=== PATIENT | male | born 1985 | race Caucasian/White ===

== ENCOUNTER 2020-12-31 09:13 | Emergency (ER) | payer OTHER ==
[~2020-12-31 09:13] MED LIST: NORCO 5-325 TA1 EACH PO; PERCOCET 5/325 T1 EA PO
[2020-12-31 11:33] LABS: RED BLOOD COUNT 5.03 M/UL (4.20-5.50); WHITE BLOOD COUNT 6.9 K/UL (4.5-11.0)
[2020-12-31 11:52] LABS: BUN/CREATININE RATIO 11 (0-10)
[2020-12-31] MEDS ORDERED: DOXYCYCLINE HY100 MG PO (12:27)
[2020-12-31] MEDS ORDERED: DECADRON6 MG PO (12:27)
[2021-03-26] MEDS ORDERED: PROTONIX40 MG PO (08:16)
[2021-03-26] MEDS ORDERED: PROZAC20 MG PO (08:16)
[2021-03-26] MEDS ORDERED: ZESTRIL20 MG PO (08:17)
== END 2020-12-31 12:50 | disposition home or self-care (01) ==
LOC: ER1 09:13
PROVIDERS: Family Medicine
DX: U07.1 COVID-19 (principal); I10 Essential (primary) hypertension; Z87.891 Personal history of nicotine dependence; Z88.2 Allergy status to sulfonamides
CPT/HCPCS: 36415; 71045; 80053; 82550; 82553; 83874; 84484; 85025; 85610; 85730; 99285

== ENCOUNTER 2021-02-11 07:14 | Emergency (ER) | payer OTHER ==
[~2021-02-11 07:14] MED LIST changes: +DECADRON6 MG PO; +DOXYCYCLINE HY100 MG PO
[2021-02-11 07:48] LABS: HEMOGLOBIN 14.8 gm/dl (14.0-17.5); RED BLOOD COUNT 4.7 M/UL (4.20-5.50)
[2021-02-11 08:11] LABS: BUN/CREATININE RATIO 15 (0-10)
[2021-02-11] MEDS ORDERED: MYLANTA MAXIMU355 ML PO (10:53)
[2021-02-11] MEDS ORDERED: XYLOCAINE 2% JE30 ML PO (10:53)
[2021-03-26] MEDS ORDERED: PROTONIX40 MG PO (08:16)
[2021-03-26] MEDS ORDERED: PROZAC20 MG PO (08:16)
[2021-03-26] MEDS ORDERED: ZESTRIL20 MG PO (08:17)
== END 2021-02-11 11:05 | disposition home or self-care (01) ==
LOC: ER1 07:14
PROVIDERS: Emergency Medicine
DX: K29.70 Gastritis, unspecified, without bleeding (principal); K21.9 Gastro-esophageal reflux disease without esophagitis; I10 Essential (primary) hypertension; F17.290 Nicotine dependence, other tobacco product, uncomplicated; Z88.2 Allergy status to sulfonamides
CPT/HCPCS: 71045; 80053; 82550; 82553; 83874; 84484; 85025; 93005; 99285

== ENCOUNTER → 2021-03-26 | Day surgery (SDC) | payer OTHER ==
[~2021-03-26] MED LIST changes: +MYLANTA MAXIMU355 ML PO; +PROTONIX40 MG PO; +PROZAC20 MG PO; +XYLOCAINE 2% JE30 ML PO; +ZESTRIL20 MG PO
== END | disposition home or self-care (01) ==
LOC: OR 07:23
DX: K29.50 Unspecified chronic gastritis without bleeding (principal); K21.00 Gastro-esophageal reflux disease with esophagitis, without bleeding; I10 Essential (primary) hypertension; F41.9 Anxiety disorder, unspecified; F17.290 Nicotine dependence, other tobacco product, uncomplicated; Z88.2 Allergy status to sulfonamides; Z79.899 Other long term (current) drug therapy
CPT/HCPCS: J2250; J2704; J7040

== ENCOUNTER → 2021-05-20 | Outpatient (CLI) | payer OTHER | LOC: NM 08:28 | DX: K31.89 Other diseases of stomach and duodenum (principal) | CPT/HCPCS: 78264; A9541 ==